=== PATIENT | male | born 1950 | race Caucasian/White ===

== ENCOUNTER 2022-06-22 08:09 | Day surgery (SDC) | payer MEDICARE, BC ==
[2022-06-21 10:17] VITALS: BMI 33.2
[2022-06-22] MEDS ORDERED: Lidocaine 1% (PF) 30 ML VIAL ONE (11:21)
[2022-06-22] MEDS ORDERED: Heparin 10,000 UNITS/ 10 ML VIAL ONE (11:21)
[2022-06-22] MEDS ORDERED: Propofol 1,000 MG/100 ML VIAL IV ONE (11:36)
[2022-06-22] MEDS ORDERED: fentaNYL 50 mcg/mL 1 mL Vial ONE (11:37)
[2022-06-22] MEDS ORDERED: Midazolam HCl 2 mg/2 ml Vial ONE (11:37)
[2022-06-22] MEDS ORDERED: Esmolol 100 MG/10 ML VIAL ONE (11:42)
[2022-06-22] MEDS ORDERED: PROPOFOL 200 MG/20 ML VIAL ONE (11:42)
[2022-06-22] MEDS ORDERED: Phenylephrine 10 MG/ML VIAL ONE (11:42)
[2022-06-22] MEDS ORDERED: ePHEDrine Sulfate 50 MG/10 ML VIAL ONE (11:42)
[2022-06-22] MEDS ORDERED: Lidocaine 1% PF 5 ML VIAL ONE (11:42)
== END 2022-06-22 16:02 | disposition home or self-care (01) ==
LOC: SDC 08:09
PROVIDERS: ATTEND Internal Medicine Cardiovascular Disease
PROC: B246ZZ4 Ultrasonography of Right and Left Heart, Transesophageal (ICD-10-PCS; principal; 2022-06-22)
PROC: 02583ZZ Destruction of Conduction Mechanism, Percutaneous Approach (ICD-10-PCS; 2022-06-22)
PROC: 02K83ZZ Map Conduction Mechanism, Percutaneous Approach (ICD-10-PCS; 2022-06-22)
PROC: 4A023FZ Measurement of Cardiac Rhythm, Percutaneous Approach (ICD-10-PCS; 2022-06-22)
PROC: 4A0234Z Measurement of Cardiac Electrical Activity, Percutaneous Approach (ICD-10-PCS; 2022-06-22)
DX: I48.3 Typical atrial flutter (principal); I11.9 Hypertensive heart disease without heart failure; I08.1 Rheumatic disorders of both mitral and tricuspid valves; E78.5 Hyperlipidemia, unspecified; I25.10 Atherosclerotic heart disease of native coronary artery without angina pectoris; Z87.891 Personal history of nicotine dependence; Z79.01 Long term (current) use of anticoagulants; Z79.82 Long term (current) use of aspirin; Z79.899 Other long term (current) drug therapy; Z88.8 Allergy status to other drugs, medicaments and biological substances; Z95.1 Presence of aortocoronary bypass graft; Z95.3 Presence of xenogenic heart valve
CPT/HCPCS: 93005; 93312; 93653; C1731; C1732; C1759; C1760 ×2; C1769; C1894 ×4; C2630; J3010; J1644; J2001; J2250; J2370; J2704